=== PATIENT | female | born 1950 | race Caucasian/White ===

== ENCOUNTER 2018-10-14 21:24 | Emergency (ER) | payer MEDICARE, OTHER ==
[~2018-10-14] VITALS: Ht 170.2 cm; Wt 111.6 kg
[~2018-10-14 21:24] MED LIST: ASA81 MG PO; Z.0.LOSARTAN POTASS5 PO; Z.0.METOPROLOL SUCC5 PO; Z.0.NEXIUM40 MG PO; Z.0.ZYRTEC10 M3 PO
--- OUTSIDE RECORDS SUMMARY | 2018-10-14 21:27 | XMS REPORT | Clinical Summary ---
Author Author [place] [facility] Organization [facility] Address Unknown Phone Unavailable Care Team Providers Care Medical Records Supervisor Name Role Phone Darrin Fischer MD PCP Allergies Comments Active Allergy Reactions Severity Noted Date Zolpidem 06/01/2018 Codeine Penicillins 04/13/2017 Hallucinations; IV Promethazine 06/01/2018 Sulfa (Sulfonamide Antibiotics) Sulfamethoxazole-Trimetho prim Sulfasalazine 01/01/2002 Zolpidem Tartrate 10/29/2011 Medications End Date Status Medication Sig Dispensed Refills Start Date Active ELIQUIS 5 mg tablet Take 5 mg by 6 mouth 2 (two) 7 times a day. Active benzonatate (TESSALON) TAKE ONE 0 100 MG capsule CAPSULE BY 7 MOUTH 2 TO 3 TIMES DAILY DIRECTED Active cephalexin (KEFLEX) 500 Take 500 mg 0 MG capsule by mouth 2 7 (two) times a day. Active clotrimazole-betamethason APPLY AND RUB 1 e (LOTRISONE) 1-0.05 % IN A THIN 7 cream LAYER TO AFFECTED AREAS TWICE A DAY (AM AND PM) Active levocetirizine (XYZAL) 5 Take 5 mg by 3 MG tablet mouth once 7 daily. Active metoprolol succinate XL Take 50 mg by 1 (TOPROL-XL) 50 mg 24 hr mouth 2 (two) 7 tablet times a day. Active metroNIDAZOLE (FLAGYL) Take 500 mg 0 500 MG tablet by mouth 7 every 8 (eight) hours. Active traMADol (ULTRAM) 50 mg Take 50 mg by 0 tablet mouth every 6 7 (six) hours as needed. for pain Active valsartan-hydrochlorothia Take 1 tablet 1 zide (DIOVAN-HCT) 80-12.5 by mouth once 7 mg per tablet daily. Active diclofenac sodium Apply 40 mg 120 g 0 (PENNSAID) 20 mg/gram topically 2 7 /actuation(2 %) solution (two) times a in metered-dose pump day. Active diclofenac sodium Apply 2 pumps 112 g 6 (PENNSAID) 20 mg/gram (40MG) 8 /actuation(2 %) solution Topically on in metered-dose pump affected area twice a day 06/07/2019 Active traMADol (ULTRAM) 50 mg Take 1 tablet 60 tablet 0 tablet (50 mg total) 8 by mouth every 4 (four) hours as needed for moderate pain. 07/09/2018 acetaminophen-codeine Take 1-2 30 tablet 0 (TYLENOL WITH CODEINE #3) tablets by 8 300-30 mg per tablet mouth 3 (three) times a day as needed for moderate pain for up to 10 days. Status Hospital, Clinic, or Ordered Dose Route Frequency Start End Date Other Facility Date Administered Medication Ended methylPREDNISolone 40 mg IM once 06/29/20 acetate (DEPO-MEDROL) 18 8 injection 40 mgIndications: Primary osteoarthritis of right knee Ended bupivacaine (MARCAINE) 5 mg inj once 06/29/20 0.5 % (5 mg/mL) injection 18 8 5 mgIndications: Primary osteoarthritis of right knee Active Problems Problem Noted Date Primary osteoarthritis of right knee 04/25/2018 Osteoarthritis of acromioclavicular joints, bilateral 04/13/2017 Trochanteric bursitis, left hip 04/13/2017 Encounters Care Team Description Date Type Specialty Gustavo Gilman Jr., MD Primary osteoarthritis of right knee (Primary Dx) 09/28/2018 Office Visit Orthopedic Surgery Martin Pillai MA 09/20/2018 Telephone Orthopedic Surgery Martin Pillai MA 09/19/2018 Telephone Orthopedic Surgery Gustavo Gilman Jr., MD Primary osteoarthritis of right knee (Primary Dx); Trochanteric bursitis, left hip 07/19/2018 Office Visit Orthopedic Surgery Gustavo Gilman Jr., MD Primary osteoarthritis of right knee (Primary Dx) 06/29/2018 Office Visit Orthopedic Surgery Aric Townsend MD 06/19/2018 Telephone Orthopedic Surgery Aric Townsend MD Sprain of collateral ligament of right knee, subsequent encounter; Pain and swelling of right knee; Joint laxity of right knee 06/14/2018 Hospital Radiology Encounter Aric Townsend MD Sprain of collateral ligament of right knee, subsequent encounter (Primary Dx); Pain and swelling of right knee; Joint laxity of right knee 06/07/2018 Office Visit Sports Medicine Carlos A Gama MD Acute pain of right knee (Primary Dx); Osteoarthritis of right knee, unspecified osteoarthritis type 06/01/2018 Emergency Emergency Medicine Gabrielle Foy MA 05/02/2018 Refill Ortho Sports Medicine Aric Townsend MD Primary osteoarthritis of right knee (Primary Dx); Castellanos's cyst of knee, right 04/25/2018 Office Visit Sports Medicine after 10/13/2017 Family History Medical History Relation Name Comments Heart disease Mother Hypertension Mother Stroke Mother Relation Name Status Comments Mother Social History Date Tobacco Use Types Packs/Day Years Used Never Smoker Smokeless Tobacco: Never Used Alcohol Use Drinks/Week oz/Week Comments No Sex Assigned at Date Recorded Not on file Industry Job Start Date Occupation Not on file Not on file Not on file Travel End Travel History Travel Start No recent travel history available. Last Filed Vital Signs Time Taken Vital Sign Reading 09/28/2018 11:14 AM WELDER EXPERIMENTAL Blood Pressure 124/75 09/28/2018 11:14 AM WELDER EXPERIMENTAL Pulse 72 06/01/2018 3:03 PM CDT Temperature 36.7 C (98 F) 06/01/2018 4:08 PM CDT Respiratory Rate 16 06/01/2018 4:08 PM CDT Oxygen Saturation 99% - Inhaled Oxygen - Concentration 09/28/2018 11:14 AM WELDER EXPERIMENTAL Weight 90.3 kg (199 lb) 09/28/2018 11:14 AM WELDER EXPERIMENTAL Height 167.6 cm (5' 6") 09/28/2018 11:14 AM WELDER EXPERIMENTAL Body Mass Index 32.12 Plan of Treatment Care Team Description Date Type Specialty Gustavo Gilman Jr., MD [address] [facility] [address] [place], [place] [id number] Joshua Fair, PT 11/21/2018 Office Visit Physical Therapy Health Maintenance Due Date Last Done Comments BREAST CANCER SCREENING 2001 COLON CANCER SCREENING 2001 SHINGRIX VACCINE (1 of 2) 2001 ZOSTER VACCINE 2011 PNEUMOCOCCAL 2016 POLYSACCHARIDE VACCINE AGE 65 AND OVER PNEUMOCOCCAL-13 2016 INFLUENZA VACCINE 06/14/2018 Procedures Comments Procedure Name Priority Date/Time Associated Diagnosis [place] ARTHROCENTESIS Routine 09/28/2018 Primary osteoarthritis of ASPIR&/INJ MAJOR JT/BURSA 10:45 AM WELDER EXPERIMENTAL right knee W/O US MN ARTHROCENTESIS Routine 06/29/2018 Primary osteoarthritis of ASPIR&/INJ MAJOR JT/BURSA 9:00 AM CDT right knee W/O US MRI KNEE WO CONTRAST Routine 06/14/2018 Sprain of collateral RIGHT 11:14 AM CDT ligament of right knee, subsequent encounter Pain and swelling of right knee Joint laxity of right knee XR KNEE 4+ VW RIGHT Routine 04/25/2018 Sprain of right knee, 4:15 PM CDT unspecified ligament, initial encounter MN ARTHROCENTESIS Routine 04/25/2018 Primary osteoarthritis of ASPIR&/INJ MAJOR JT/BURSA 4:15 PM CDT right knee W/O US Castellanos's cyst of knee, right after 10/13/2017 Results * Large Joint Arthrocentesis: knee, R knee (09/28/2018 10:45 AM WELDER EXPERIMENTAL) Narrative Performed At Gustavo Gilman Jr., MD 10/08/2018 12:25 PM Large Joint Arthrocentesis: knee, R knee Consent given by: patient Site marked: site marked Timeout: Immediately prior to procedure a time out was called to verify the correct patient, procedure, equipment, student support counselor and site/side marked as required Supporting Documentation Indications: pain Procedure Details Preparation: Patient was prepped and draped in the usual sterile fashion Location: knee - R knee Right side: Needle size: 22 G Approach: anterolateral Right knee medications administered: 1 mL bupivacaine 0.5 % (5 mg/mL); 40 mg methylPREDNISolone acetate 40 mg/mL Patient tolerance: patient tolerated the procedure well with no immediate complications * Large Joint Arthrocentesis (06/29/2018 9:00 AM CDT) Narrative Performed At Gustavo Gilman Jr., MD 07/03/20183:05 PM Large Joint Arthrocentesis Consent given by: patient Site marked: site marked Timeout: Immediately prior to procedure a time out was called to verify the correct patient, procedure, equipment, student support counselor and site/side marked as required Supporting Documentation Indications: pain and joint swelling Procedure Details Preparation: Patient was prepped and draped in the usual sterile fashion Location: knee - R knee Right side: Needle size: 22 G Right knee medications administered: 40 mg methylPREDNISolone acetate 40 mg/mL; 1 mL bupivacaine 0.5 % (5 mg/mL) Patient tolerance: patient tolerated the procedure well with no immediate complications * MRI Knee Right Wo Contrast (06/14/2018 11:14 AM CDT) Narrative Performed At EXAMINATION:MRI KNEE WO CONTRAST RIGHT [facility] CLINICAL HISTORY: 67 years Female S83.401D Sprain of unspecified collateral ligament of right kneesubsequent encounter, M25.561 Pain in right knee, MMT - SOFT TISSUE MASS TECHNIQUE:Multiplanar multisequence MR imaging of the right knee was performed without contrast. COMPARISON:None. FINDINGS: Menisci: lateral meniscus demonstrates an extensive tear of the anterior horn with maceration extending to the anterior root. This is largely horizontal degenerative tear also extends to the posterior horn. The medial meniscus demonstrates an inferior surface obliquely oriented tear extending to the body. This is a horizontal degenerative tear. Cruciate ligaments: The anterior and posterior crucial ligaments are intact. Collateral ligaments: The medial collateral ligament is thickened consistent with some scar from chronic tear. The lateral collateral ligament appears intact. Osseous structures and cartilaginous surfaces: There is diffuse chondromalacia involving the lateral compartment with no focal full-thickness lesions noted. No marrow edema is identified. Medially there is near denuding of articular cartilage over the central and anterior weightbearing surfaces of the medial femoral condyle and medial tibial plateau In the patellofemoral compartment there is mild attenuation of articular cartilage over the central patellar articular surface and adjacent portion of the lateral facet. Attenuation of cartilage in the trochlear groove is also present. Osteophytes medially are noted although these are small. Patellofemoral joint: The patella fits normally and the trochlear groove. Visualized portions of the quadriceps and patellar tendons are intact. Miscellaneous findings: There is a small volume of joint fluid. There is a popliteal cyst measuring approximately 5 cm in maximum dimension. IMPRESSION: 1. 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 2. Extensive horizontal tear communicating along the inferior meniscal surface and free edge involving the medial meniscus extending to the periphery and body and to the area of the posterior root attachment. 3. 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 Milder changes laterally and in the patellofemoral compartment are present. 4. Moderate joint effusion, popliteal cyst measuring up to approximately 5 cm. [id number] Procedure Note Hm Interface, Radiology Results Incoming - 06/14/2018 11:36 AM CDT EXAMINATION: MRI KNEE WO CONTRAST RIGHT CLINICAL HISTORY: 67 years Female S83.401D Sprain of unspecified collateral ligament of right knee subsequent encounter, M25.561 Pain in right knee, MMT - SOFT TISSUE MASS TECHNIQUE: Multiplanar multisequence MR imaging of the right knee was performed without contrast. COMPARISON: None. FINDINGS: Menisci: lateral meniscus demonstrates an extensive tear of the anterior horn with maceration extending to the anterior root. This is largely horizontal degenerative tear also extends to the posterior horn. The medial meniscus demonstrates an inferior surface obliquely oriented tear extending to the body. This is a horizontal degenerative tear. Cruciate ligaments: The anterior and posterior crucial ligaments are intact. Collateral ligaments: The medial collateral ligament is thickened consistent with some scar from chronic tear. The lateral collateral ligament appears intact. Osseous structures and cartilaginous surfaces: There is diffuse chondromalacia involving the lateral compartment with no focal full-thickness lesions noted. No marrow edema is identified. Medially there is near denuding of articular cartilage over the central and anterior weightbearing surfaces of the medial femoral condyle and medial tibial plateau In the patellofemoral compartment there is mild attenuation of articular cartilage over the central patellar articular surface and adjacent portion of the lateral facet. Attenuation of cartilage in the trochlear groove is also present. Osteophytes medially are noted although these are small. Patellofemoral joint: The patella fits normally and the trochlear groove. Visualized portions of the quadriceps and patellar tendons are intact. Miscellaneous findings: There is a small volume of joint fluid. There is a popliteal cyst measuring approximately 5 cm in maximum dimension. IMPRESSION: 1. 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 2. Extensive horizontal tear communicating along the inferior meniscal surface and free edge involving the medial meniscus extending to the periphery and body and to the area of the posterior root attachment. 3. 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 Milder changes laterally and in the patellofemoral compartment are present. 4. Moderate joint effusion, popliteal cyst measuring up to approximately 5 cm. [id number] Performing Organization Address [facility] Phone Number [email or web address] [address] [place] [address] * XR Knee 4+ Vw Right (04/25/2018 4:15 PM CDT) Narrative Performed At [facility] Moderate Medial and patellofemoral compartment joint space narrowing Performing Organization Address [facility] Phone Number [email or web address] [address] [place] [address] * Large Joint Arthrocentesis (04/25/2018 4:15 PM CDT) Narrative Performed At Aric Townsend MD 04/25/20184:48 PM Large Joint Arthrocentesis Consent given by: patient Site marked: site marked Timeout: Immediately prior to procedure a time out was called to verify the correct patient, procedure, equipment, student support counselor and site/side marked as required Supporting Documentation Indications: pain Procedure Details Preparation: Patient was prepped and draped in the usual sterile fashion Location: knee - R knee Right side: Needle size: 20 G Approach: lateral Right knee medications administered: 2 mL bupivacaine 0.25 % (2.5 mg/mL); 80 mg methylPREDNISolone acetate 80 mg/mL Patient tolerance: patient tolerated the procedure well with no immediate complications after 10/13/2017 Insurance Payer Benefit Subscriber ID Type Phone Address Plan / Group HUMANA MEDICARE HUMANA xxxxxxxxx PPO MEDICARE PPO/PFFS/E [facility] Advance Directives Patient has advance care planning documents on file. For more information, douglas rios contact: Adin Garcia [address] [place] [address]
[2018-10-14] MEDS ORDERED: DIATRIZOATE MEGL/DIATRIZOA SOD 30 ML BTL PO ONE (22:06)
[2018-10-14 22:07] LABS: BASOPHILS # (AUTO) 0.1 (0.0-0.1); BASOPHILS % 0.8 % (0.0-1.0); EOSINOPHILS # (AUTO) 0.3 (0.0-0.4); EOSINOPHILS % 2.4 % (0.0-6.0); HEMATOCRIT 43.7 % (34.2-44.1); HEMOGLOBIN 14.4 g/dL (12.0-16.0); LYMPHOCYTES % 28.5 % (18.0-39.1); MEAN CORPUSCULAR HEMOGLOBIN 29.1 pg (28-32); MEAN CORPUSCULAR VOLUME 88.3 fL (81-99); MONOCYTES # (AUTO) 0.8 (0.2-0.8); MONOCYTES % 7.6 % (4.4-11.3); NEUTROPHILS # (AUTO) 6.3 (2.1-6.9); NEUTROPHILS % 60.5 % (38.7-80.0); PLATELET COUNT 310 x10e3/uL (140-360); RED BLOOD COUNT 4.95 x10e6/uL (3.6-5.1); RED CELL DISTRIBUTION WIDTH 12.1 % (11.7-14.4)
[2018-10-14 22:11] LABS: INR 1.04; PROTHROMBIN TIME 14.5 seconds (11.9-14.5)
[2018-10-14 22:12] LABS: PARTIAL THROMBOPLASTIN TIME 30.2 seconds (23.8-35.5)
[2018-10-14 22:18] LABS: BILIRUBIN,URINE NEGATIVE (NEGATIVE); CLARITY,URINE CLEAR (CLEAR); COLOR,URINE YELLOW (YELLOW); KETONES,URINE NEGATIVE (NEGATIVE); LEUKOCYTE ESTERASE ,URINE NEGATIVE (NEGATIVE); NITRITE,URINE NEGATIVE (NEGATIVE); PROTEIN,URINE DIPSTICK NEGATIVE (NEGATIVE); URINE UROBILINOGEN 0.2 mg/dL (0.2 - 1)
[2018-10-14 22:21] LABS: ALANINE AMINOTRANSFERASE 25 IU/L (0-55); ALBUMIN 4.3 g/dL (3.5-5.0); ALBUMIN/GLOBULIN RATIO 1.3 (0.8-2.0); ALKALINE PHOSPHATASE 84 IU/L (40-150); AMYLASE 51 U/L (25-125); ANION GAP 15.3 mmol/L (8-16); BLOOD UREA NITROGEN 24 mg/dL (7-26); BUN/CREATININE RATIO 32 (6-25); CALCIUM 10.2 mg/dL (8.4-10.2); CARBON DIOXIDE 28 mmol/L (22-29); CHLORIDE 98 mmol/L (98-107); CREATININE, SERUM 0.76 mg/dL (0.57-1.11); EST GLOMERULAR FILTRATION RATE > 60 ML/MIN (60-); GLUCOSE 100 mg/dL (74-118); LIPASE 49 U/L (8-78); MAGNESIUM 2.2 MG/DL (1.3-2.1); POTASSIUM 3.3 mmol/L (3.5-5.1); SODIUM 138 mmol/L (136-145)
[2018-10-14 22:41] LABS: BACTERIA,URINE RARE /HPF; EPITHELIAL CELLS,URINE RARE /LPF; WBC,URINE (MAN) 0-5 /HPF (0-5)
[2018-10-14] MEDS ORDERED: IOPAMIDOL 370 MG/ML 200 ML INFUS..BTL INJ ONE (23:26)
[2018-10-14] MEDS ORDERED: SODIUM CHLORIDE 0.9% 50ML 50 ML ONE (23:26)
--- NOTE | 2018-10-15 00:12 | Diagnostic Imaging Report ---
EXAM: CT ABDOMEN AND PELVIS with IV CONTRAST DATE: 10/14/2018 9:51 PM Time stamp on Exam: 2346 hours INDICATION: Left lower quadrant pain COMPARISON: None TECHNIQUE: The abdomen and pelvis were scanned using a multidetector helical scanner. Coronal and sagittal reformations were obtained. Dose modulation, iterative reconstruction, and/or weight based adjustment of the mA/kV was utilized to reduce the radiation dose to as low as reasonably achievable. Routine protocol performed. IV Contrast: 100 cc Isovue-370 Oral Contrast: Gastrografin FINDINGS: LOWER THORAX: No consolidations LIVER: No masses BILIARY: The gallbladder is unremarkable. No ductal dilation. SPLEEN: No masses PANCREAS: No masses ADRENALS: No nodules KIDNEYS: Symmetric perfusion. No enhancing masses. No hydronephrosis. GI TRACT: Colonic diverticulosis, predominantly of the descending and sigmoid colon. Minimal focal inflammation at the junction of the descending and sigmoid colon. The remainder of the bowel is unremarkable. VESSELS: Unremarkable PERITONEUM/RETROPERITONEUM: No free air or fluid LYMPH NODES: No lymphadenopathy REPRODUCTIVE ORGANS: The uterus has been removed. Left adnexal 3 cm cyst. BLADDER: Unremarkable SOFT TISSUES: Unremarkable BONES: No suspicious bone lesions. IMPRESSION: 1. Early uncomplicated diverticulitis of the distal descending colon. 2. Incidental left ovarian 3 cm cyst. If no priors are available for comparison, current recommendation for a postmenopausal female is to have follow-up (non-emergent) pelvic ultrasound. Signed by: Dr. Valeria Chou M.D. on 10/15/2018 12:09 AM
[2018-10-15 00:50] VITALS: BP 147/87
[2018-10-25] MEDS ORDERED: METRONIDAZOLE500 MG PO (09:13)
[2018-10-25] MEDS ORDERED: CIPRO500 MG PO (09:13)
== END 2018-10-15 00:52 | disposition home or self-care (01) ==
LOC: ER 21:24
DX: R10.32 Left lower quadrant pain (principal); R11.0 Nausea; K57.32 Diverticulitis of large intestine without perforation or abscess without bleeding; I48.91 Unspecified atrial fibrillation; K21.9 Gastro-esophageal reflux disease without esophagitis; I34.1 Nonrheumatic mitral (valve) prolapse
CPT/HCPCS: 36415; 74177; 80053; 81001; 82150; 83605; 83690; 83735; 85025; 85610; 85730; 93005; 99284; Q9663; Q9967

== ENCOUNTER 2018-10-22 04:15 | Inpatient (IN) | payer MEDICARE, OTHER ==
[~2018-10-22] VITALS: Ht 167.6 cm; Wt 91.8 kg
--- OUTSIDE RECORDS SUMMARY | 2018-10-22 04:17 | XMS REPORT | Clinical Summary ---
Author Author [place] [facility] Organization [facility] Address Unknown Phone Unavailable Care Team Providers Care Equine Breeder Name Role Phone Darrin Fischer MD PCP [...] right 04/25/2018 Office Visit Sports Medicine after 10/21/2017 Family History Medical History Relation Name Comments [...] Taken Vital Sign Reading 09/28/2018 11:14 AM VICE PRESIDENT NETWORK DEVELOPMENT Blood Pressure 124/75 09/28/2018 11:14 AM VICE PRESIDENT NETWORK DEVELOPMENT Pulse 72 06/01/2018 3:03 PM CDT Temperature 36.7 C (98 F) 06/01/2018 4:08 PM CDT Respiratory Rate 16 06/01/2018 4:08 PM CDT Oxygen Saturation 99% - Inhaled Oxygen - Concentration 09/28/2018 11:14 AM VICE PRESIDENT NETWORK DEVELOPMENT Weight 90.3 kg (199 lb) 09/28/2018 11:14 AM VICE PRESIDENT NETWORK DEVELOPMENT Height 167.6 cm (5' 6") 09/28/2018 11:14 AM VICE PRESIDENT NETWORK DEVELOPMENT Body Mass Index 32.12 Plan of Treatment Care Team Description Date Type Specialty Gustavo Gilman Jr., MD [address] [facility] [address] [place], [place] [id number] Joshua Fair, PT 11/21/2018 Office Visit Physical Therapy Health Maintenance Due Date Last Done Comments BREAST CANCER SCREENING 2001 COLON CANCER SCREENING 2001 SHINGRIX VACCINE (1 of 2) 2001 ZOSTER VACCINE 2011 PNEUMOCOCCAL 2016 POLYSACCHARIDE VACCINE AGE 65 AND OVER PNEUMOCOCCAL-13 2016 INFLUENZA VACCINE 06/14/2018 Procedures Comments Procedure Name Priority Date/Time Associated Diagnosis ME ARTHROCENTESIS Routine 09/28/2018 Primary osteoarthritis of ASPIR&/INJ MAJOR JT/BURSA 10:45 AM VICE PRESIDENT NETWORK DEVELOPMENT right knee W/O US ME ARTHROCENTESIS Routine 06/29/2018 Primary osteoarthritis of ASPIR&/INJ [...] 4:15 PM CDT unspecified ligament, initial encounter ME ARTHROCENTESIS Routine 04/25/2018 Primary osteoarthritis of ASPIR&/INJ MAJOR JT/BURSA 4:15 PM CDT right knee W/O US Castellanos's cyst of knee, right after 10/21/2017 Results * Large Joint Arthrocentesis: knee, R knee (09/28/2018 10:45 AM VICE PRESIDENT NETWORK DEVELOPMENT) Narrative Performed At Gustavo Gilman Jr., MD 10/08/2018 12:25 PM Large Joint Arthrocentesis: knee, R knee Consent given by: patient Site marked: site marked Timeout: Immediately prior to procedure a time out was called to verify the correct patient, procedure, equipment, academic support director and site/side marked as required Supporting Documentation [...] to verify the correct patient, procedure, equipment, academic support director and site/side marked as required Supporting Documentation [...] cyst measuring up to approximately 5 cm. [id number] Procedure Note Hm Interface, Radiology Results Incoming [...] cyst measuring up to approximately 5 cm. [id number] Performing Organization Address [facility] Phone Number [facility] [address] [place] [address] * XR Knee 4+ Vw Right (04/25/2018 4:15 PM CDT) Narrative Performed At [facility] Moderate Medial and patellofemoral compartment joint space narrowing Performing Organization Address [facility] Phone Number [facility] [address] [place] [address] * Large Joint Arthrocentesis (04/25/2018 4:15 PM CDT) Narrative Performed At Aric Townsend MD 04/25/20184:48 PM Large Joint Arthrocentesis Consent given by: patient Site marked: site marked Timeout: Immediately prior to procedure a time out was called to verify the correct patient, procedure, equipment, academic support director and site/side marked as required Supporting Documentation [...] procedure well with no immediate complications after 10/21/2017 Insurance Payer Benefit Subscriber ID Type Phone Address Plan / Group HUMANA MEDICARE HUMANA xxxxxxxxx PPO MEDICARE PPO/PFFS/E [facility] Advance Directives Patient has advance care planning documents on file. For more information, douglas rios contact: Adin Garcia [address] [place] [address]
--- OUTSIDE RECORDS SUMMARY | 2018-10-22 04:17 | XMS REPORT ---
Author Author [facility] Address Unknown Phone Unavailable Care Team Providers Care Illuminator Name Role Phone Cheryl BUTLER Unavailable Unavailable Problems This patient has no known problems. Allergies, Adverse Reactions, Alerts This patient has no known allergies or adverse reactions. Medications This patient has no known medications. Results Test Description Test Time Test Comments Text Results Atomic Results Result Comments CT ABDOMEN/PELVIS W 2018-10-14 23:59:00 [place] [address] Patient Name: SAGAR RODRIGUEZ MR #: [id number] : 1950 Age/Sex: 67/F Req #: [id number] Adm Physician: Ordered by: EZEKIEL HALL TIPPLE OILER Report #: [id number] Location: ER Room/Bed: Procedure: [id number] CT/CT ABDOMEN/PELVIS W Exam Date: 10/14/18 Exam Time: 2340 REPORT STATUS: Signed EXAM: CT ABDOMEN AND PELVIS with IV CONTRAST DATE: 10/14/2018 9:51 PM Time stamp on Exam: 2346 hours INDICATION: Left lower quadrant pain COMPARISON: None TECHNIQUE: The abdomen and pelvis were scanned using a multidetector helical scanner. Coronal and sagittal reformations were obtained. Dose modulation, iterative reconstruction, and/or weight based adjustment of the mA/kV was utilized to reduce the radiation dose to as low as reasonably achievable. Routine protocol performed. IV Contrast: 100 cc Isovue-370 Oral Contrast: Gastrografin FINDINGS: LOWER THORAX: No consolidations LIVER: No masses BILIARY: The gallbladder is unremarkable. No ductal dilation. SPLEEN: No masses PANCREAS: No masses ADRENALS: No nodules KIDNEYS: Symmetric perfusion. No enhancing masses. No hydronephrosis. GI TRACT: Colonic diverticulosis, predominantly of the descending and sigmoid colon. Minimal focal inflammation at the junction of the descending and sigmoid colon. The remainder of the bowel is unremarkable. VESSELS: Unremarkable PERITONEUM/RETROPERITONEUM: No free air or fluid LYMPH NODES: No lymphadenopathy REPRODUCTIVE ORGANS: The uterus has been removed. Left adnexal 3 cm cyst. BLADDER: Unremarkable SOFT TISSUES: Unremarkable BONES: No suspicious bone lesions. IMPRESSION: 1. Early uncomplicated diverticulitis of the distal descending colon. 2. Incidental left ovarian 3 cm cyst. If no priors are available for comparison, current recommendation for a postmenopausal female is to have follow-up (non-emergent) pelvic ultrasound. Signed by: Dr. Samuel Chou M.D. on 10/15/2018 12:09 AM Dictated By: SAMUEL CHOU MD Transcribed By: LINDA on 10/15/188 COPY TO: EZEKIEL HALL NP
[2018-10-22] MEDS ORDERED: SODIUM CHLORIDE 0.9% 1000ML 1,000 ML IV STA (04:29)
[2018-10-22] MEDS ORDERED: PANTOPRAZOLE 40 MG 10ML VIAL IV STA (04:29)
[2018-10-22] MEDS ORDERED: ONDANSETRON HCL INJ 2 MG/ML VIAL IV STA (04:29)
[2018-10-22] MEDS ORDERED: CEFEPIME HCL 2 GM VIAL IV SCH (04:30)
[2018-10-22] MEDS ORDERED: METRONIDAZOLE 500MG/NS 100ML 100 ML IV SCH (04:30)
[2018-10-22 05:18] LABS: BASOPHILS # (AUTO) 0.1 (0.0-0.1); BASOPHILS % 0.7 % (0.0-1.0); EOSINOPHILS # (AUTO) 0.2 (0.0-0.4); EOSINOPHILS % 1.8 % (0.0-6.0); HEMOGLOBIN 15.4 g/dL (12.0-16.0); LYMPHOCYTES # (AUTO) 2.8 (1.0-3.2); LYMPHOCYTES % 23.5 % (18.0-39.1); MEAN CORPUSCULAR HGB CONC 32.8 g/dL (31-35); MEAN CORPUSCULAR VOLUME 88.5 fL (81-99); MONOCYTES # (AUTO) 0.9 (0.2-0.8); MONOCYTES % 7.8 % (4.4-11.3); PLATELET COUNT 275 x10e3/uL (140-360); RED BLOOD COUNT 5.31 x10e6/uL (3.6-5.1); RED CELL DISTRIBUTION WIDTH 12.3 % (11.7-14.4)
[2018-10-22] MEDS ORDERED: SODIUM CHLORIDE 0.9% 100 ML ONE (05:22)
[2018-10-22 05:28] LABS: INR 0.96; PARTIAL THROMBOPLASTIN TIME 33.1 seconds (23.8-35.5); PROTHROMBIN TIME 13.7 seconds (11.9-14.5)
[2018-10-22 05:36] LABS: ALANINE AMINOTRANSFERASE 33 IU/L (0-55); ALBUMIN 4.1 g/dL (3.5-5.0); ALBUMIN/GLOBULIN RATIO 1.1 (0.8-2.0); ALKALINE PHOSPHATASE 87 IU/L (40-150); ANION GAP 14.6 mmol/L (8-16); BLOOD UREA NITROGEN 14 mg/dL (7-26); BUN/CREATININE RATIO 20 (6-25); CALCIUM 10.5 mg/dL (8.4-10.2); CARBON DIOXIDE 30 mmol/L (22-29); CHLORIDE 99 mmol/L (98-107); CREATINE KINASE 52 IU/L (29-168); CREATININE, SERUM 0.69 mg/dL (0.57-1.11); EST GLOMERULAR FILTRATION RATE > 60 ML/MIN (60-); GLUCOSE 118 mg/dL (74-118); POTASSIUM 3.6 mmol/L (3.5-5.1); SODIUM 140 mmol/L (136-145)
[2018-10-22] MEDS ORDERED: ELIQUIS PO (06:15)
[2018-10-22] MEDS ORDERED: HYDROCHLOROTH12.5 MG PO (06:15)
[2018-10-22 06:29] LABS: COLOR,URINE STRAW (YELLOW)
[2018-10-22 06:30] LABS: BACTERIA,URINE FEW /HPF; BILIRUBIN,URINE NEGATIVE (NEGATIVE); CLARITY,URINE CLEAR (CLEAR); EPITHELIAL CELLS,URINE FEW /LPF; KETONES,URINE NEGATIVE (NEGATIVE); LEUKOCYTE ESTERASE ,URINE NEGATIVE (NEGATIVE); NITRITE,URINE NEGATIVE (NEGATIVE); PROTEIN,URINE DIPSTICK NEGATIVE (NEGATIVE); URINE UROBILINOGEN 0.2 mg/dL (0.2 - 1); WBC,URINE (MAN) 0-5 /HPF (0-5)
[2018-10-22] MEDS ORDERED: MORPHINE SULFATE 2 MG/ML SYR IV PRN (06:45)
[2018-10-22] MEDS ORDERED: ONDANSETRON HCL INJ 2 MG/ML VIAL IV PRN (06:45)
[2018-10-22] MEDS ORDERED: SODIUM CHLORIDE 0.9% 1000ML 1,000 ML ONE (07:14)
[2018-10-22] MEDS: SODIUM CHLORIDE 0.9% 1000ML 1,000 ML IV SCH ×2 (07:15→16:33)
--- OUTSIDE RECORDS SUMMARY | 2018-10-22 07:37 | XMS REPORT | Clinical Summary ---
Author Author [place] [employer] Address Unknown Phone Unavailable Care Team Providers Care Manager Contracting Name Role Phone Darrin [place] MD PCP [...] Taken Vital Sign Reading 09/28/2018 11:14 AM GLYCERIN OPERATOR Blood Pressure 124/75 09/28/2018 11:14 AM GLYCERIN OPERATOR Pulse 72 06/01/2018 3:03 PM CDT Temperature 36.7 C (98 F) 06/01/2018 4:08 PM CDT Respiratory Rate 16 06/01/2018 4:08 PM CDT Oxygen Saturation 99% - Inhaled Oxygen - Concentration 09/28/2018 11:14 AM GLYCERIN OPERATOR Weight 90.3 kg (199 lb) 09/28/2018 11:14 AM GLYCERIN OPERATOR Height 167.6 cm (5' 6") 09/28/2018 11:14 AM GLYCERIN OPERATOR Body Mass Index 32.12 Plan of Treatment Care Team Description Date Type Specialty Gustavo Gilman Jr., MD [address] [facility] [address] [place], [place] [id number] Joshua Fair, PT 11/21/2018 Office Visit Physical Therapy Health Maintenance Due Date Last Done Comments BREAST CANCER SCREENING 2001 COLON CANCER SCREENING 2001 SHINGRIX VACCINE (1 of 2) 2001 ZOSTER VACCINE 2011 PNEUMOCOCCAL 2016 POLYSACCHARIDE VACCINE AGE 65 AND OVER PNEUMOCOCCAL-13 2016 INFLUENZA VACCINE 06/14/2018 Procedures Comments Procedure Name Priority Date/Time Associated Diagnosis UT ARTHROCENTESIS Routine 09/28/2018 Primary osteoarthritis of ASPIR&/INJ MAJOR JT/BURSA 10:45 AM GLYCERIN OPERATOR right knee W/O US UT ARTHROCENTESIS Routine 06/29/2018 Primary osteoarthritis of ASPIR&/INJ [...] 4:15 PM CDT unspecified ligament, initial encounter UT ARTHROCENTESIS Routine 04/25/2018 Primary osteoarthritis of ASPIR&/INJ MAJOR JT/BURSA 4:15 PM CDT right knee W/O US Castellanos's cyst of knee, right after 10/21/2017 Results * Large Joint Arthrocentesis: knee, R knee (09/28/2018 10:45 AM GLYCERIN OPERATOR) Narrative Performed At Gustavo Gilman Jr., MD 10/08/2018 12:25 PM Large Joint Arthrocentesis: knee, R knee Consent given by: patient Site marked: site marked Timeout: Immediately prior to procedure a time out was called to verify the correct patient, procedure, equipment, operations support professionals and site/side marked as required Supporting Documentation [...] to verify the correct patient, procedure, equipment, operations support professionals and site/side marked as required Supporting Documentation [...] cyst measuring up to approximately 5 cm. [id number] Procedure Note Hm Interface, Radiology Results Incoming [...] cyst measuring up to approximately 5 cm. [id number] Performing Organization Address [facility] Phone Number [facility] [address] [place] [address] * XR Knee 4+ Vw Right (04/25/2018 4:15 PM CDT) Narrative Performed At [facility] Moderate Medial and patellofemoral compartment joint space narrowing Performing Organization Address [facility] Phone Number [facility] [address] [place] [address] * Large Joint Arthrocentesis (04/25/2018 4:15 PM CDT) Narrative Performed At Aric Townsend MD 04/25/20184:48 PM Large Joint Arthrocentesis Consent given by: patient Site marked: site marked Timeout: Immediately prior to procedure a time out was called to verify the correct patient, procedure, equipment, operations support professionals and site/side marked as required Supporting Documentation [...] [employer]NA MEDICARE HUMANA xxxxxxxxx PPO MEDICARE PPO/PFFS/E [facility] Advance Directives Patient has advance care planning documents on file. For more information, douglas rios contact: Adin Garcia [phone] [place] [address]
[2018-10-22 08:00] VITALS: BP 139/77
[2018-10-22] MEDS ORDERED: METOPROLOL TARTRATE 50 MG TAB PO SCH (09:00)
[2018-10-22 12:43] VITALS: BP 122/60
--- NOTE | 2018-10-22 13:59 | History and Physical ---
Ms. Trent is a [facility] 67-year-old woman who presents to the emergency room this morning with a complaint of left lower quadrant abdominal discomfort. HISTORY OF PRESENT ILLNESS: Patient reports that she visited the emergency room here on October 14 and had CAT scan of the abdomen for similar symptoms that suggested diverticulitis, and she was sent home to take oral Cipro and Flagyl, but she feels that her symptoms are getting worse. Past medical history is significant for previous episode of diverticulitis about 2016. She was also hospitalized at [facility] in 2011 for atrial fibrillation and more recently started Eliquis for chronic atrial fibrillation. PAST MEDICAL HISTORY: Significant for diverticulitis; atrial fib, chronic; previous hysterectomy, remote. CURRENT HOME MEDICATIONS: Include; 1. Eliquis 5 mg twice a day. 2. Metoprolol 50 mg twice a day. 3. Losartan 25 mg daily. 4. Hydrochlorothiazide 12.5 mg daily. 5. Nexium 40 mg twice a day. 6. Singulair 10 mg daily. 7. Xyzal 5 mg daily. ALLERGIES: SHE REPORTS SHE IS ALLERGIC TO PENICILLIN AND SULFA DRUGS, SOME PROBLEM WITH PHENERGAN AND AMBIEN. PERSONAL AND SOCIAL HISTORY: She does not smoke or drink. FAMILY HISTORY: Father of lung cancer. Mother of hypertension and cardiac problems. PHYSICAL EXAMINATION GENERAL: At this time shows a pleasant obese white woman who is alert, responsive, afebrile. VITAL SIGNS: Blood pressure 139/77, pulse is 80 and irregularly irregular. HEAD, EYES, EARS, NOSE, AND THROAT: Unremarkable. NECK: No jugular venous distention. THORAX: Heart sounds S1 and S2 are equal, but irregularly irregular. There is no distinct murmur audible. LUNGS: Clear. ABDOMEN: Protuberant. Normal bowel sounds. Nontender. EXTREMITIES: No cyanosis, clubbing, or edema. Recent CAT scan of the abdomen performed October 14 suggests "uncomplicated diverticulitis and a 3-cm ovarian cyst on the left." CURRENT LABS: Show a white count of 12.1, hemoglobin 15.4. BUN 14, creatinine 0.69. ASSESSMENT 1. Diverticulitis. 2. Chronic atrial fibrillation. 3. Hypertension. PLAN: We will attempt to continue her home medications, and she is to receive IV antibiotics. We will ask for GI consultation, and we will monitor closely. Dr. Moran will resume her care tomorrow. Job#: [id number] LPA cc:DR. GIANNI MCFARLANE
[2018-10-22] MEDS: CEFEPIME HCL 2 GM VIAL IV SCH ×2 (14:34→22:35)
[2018-10-22] MEDS: METRONIDAZOLE 500MG/NS 100ML 100 ML IV SCH ×2 (14:34→23:00)
[2018-10-22] MEDS: ACETAMINOPHEN 325 MG TAB PO PRN (14:44)
[2018-10-22] MEDS: APIXABAN 5 MG TABLET PO SCH (16:33)
[2018-10-22] MEDS: METOPROLOL SUCCINATE 50 MG TAB XL PO SCH (16:34)
[2018-10-22 17:09] VITALS: BP 107/52
[2018-10-22 19:54] VITALS: BP 112/61
[2018-10-23] VITALS (8 sets, daily range): BP systolic 104–150; BP diastolic 51–68
[2018-10-23] MEDS: ACETAMINOPHEN 325 MG TAB PO PRN ×3 (01:11→14:38)
[2018-10-23 05:50] LABS: BASOPHILS # (AUTO) 0.1 (0.0-0.1); BASOPHILS % 0.8 % (0.0-1.0); EOSINOPHILS # (AUTO) 0.2 (0.0-0.4); EOSINOPHILS % 2.9 % (0.0-6.0); HEMATOCRIT 36.8 % (34.2-44.1); LYMPHOCYTES # (AUTO) 2.5 (1.0-3.2); LYMPHOCYTES % 33.2 % (18.0-39.1); MEAN CORPUSCULAR HEMOGLOBIN 29.3 pg (28-32); MEAN CORPUSCULAR HGB CONC 32.6 g/dL (31-35); MEAN CORPUSCULAR VOLUME 89.8 fL (81-99); MONOCYTES # (AUTO) 0.8 (0.2-0.8); MONOCYTES % 10.3 % (4.4-11.3); NEUTROPHILS % 52.7 % (38.7-80.0); PLATELET COUNT 220 x10e3/uL (140-360); RED CELL DISTRIBUTION WIDTH 12.4 % (11.7-14.4)
[2018-10-23 06:00] LABS: ANION GAP 9.6 mmol/L (8-16); BLOOD UREA NITROGEN 6 mg/dL (7-26); BUN/CREATININE RATIO 11 (6-25); CARBON DIOXIDE 29 mmol/L (22-29); CHLORIDE 107 mmol/L (98-107); CREATININE, SERUM 0.57 mg/dL (0.57-1.11); EST GLOMERULAR FILTRATION RATE > 60 ML/MIN (60-); GLUCOSE 94 mg/dL (74-118); POTASSIUM 3.6 mmol/L (3.5-5.1); SODIUM 142 mmol/L (136-145)
[2018-10-23] MEDS: SODIUM CHLORIDE 0.9% 1000ML 1,000 ML IV SCH ×3 (06:34→22:23)
[2018-10-23] MEDS: CEFEPIME HCL 2 GM VIAL IV SCH ×3 (06:34→22:21)
[2018-10-23] MEDS: METRONIDAZOLE 500MG/NS 100ML 100 ML IV SCH ×3 (06:35→23:30)
[2018-10-23] MEDS: METOPROLOL SUCCINATE 50 MG TAB XL PO SCH ×2 (08:29→16:48)
[2018-10-23] MEDS: APIXABAN 5 MG TABLET PO SCH ×2 (08:29→16:48)
[2018-10-23] MEDS: LOSARTAN POTASSIUM 25 MG TAB PO SCH (08:29)
--- NOTE | 2018-10-23 09:24 | Consultation ---
DATE OF CONSULTATION: October 23, 2018 This is a 67-year-old lady who presented to the hospital because of pain in the left lower quadrant area. Also has some diarrhea. The patient was seen a week ago and was found to have diverticulitis and was sent home with oral Cipro and Flagyl. However, the pain is not getting better. She is currently feeling better. She said that she had a colonoscopy supposedly about 2 years or so ago. Her workup so far reveals that her white count was a little bit high at 12.1 on admission, and CMP was okay. The CAT scan was not repeated because it was done a week ago and showed evidence of diverticulitis. Her other medical problems are significant for history of atrial fibrillation, history of hysterectomy, history of hypertension, and previous history of diverticulitis about 2 years or so ago. MEDICATIONS ON ADMISSION: Include Eliquis, metoprolol, losartan, hydrochlorothiazide, Nexium, Singulair. ALLERGIES: PENICILLIN AND SULFA. SOCIAL HISTORY: No alcohol abuse. FAMILY HISTORY: Significant for lung cancer and hypertension. REVIEW OF SYSTEMS: Denies any chest pain or shortness of breath. Denies any dysphagia or odynophagia. Denies any dysuria or hematuria or any kind of syncopal episode. PHYSICAL EXAMINATION GENERAL: The patient is awake, alert, appears to be stable, not in acute distress at this point. VITAL SIGNS: Afebrile currently with stable vital signs. HEAD, EYES, EARS, NOSE AND THROAT: Normocephalic and atraumatic. Sclerae are anicteric. NECK: Supple. CARDIAC: Heart sounds regular. ABDOMEN: Soft. There is mild left lower quadrant tenderness. There is no rebound or mass. EXTREMITIES: No clubbing. LAB VALUES: Significant for this morning CBC was okay. BMP was okay. IMPRESSION 1. Acute diverticulitis, currently doing better. 2. History of hypertension. 3. History of atrial fibrillation. PLAN: Continue antibiotic at this point. Advance diet tomorrow. Patient will need to have a colonoscopy in about 6 to 8 weeks. Job#: [id number] cc:MD CLARK STAFFORD MD
[2018-10-24] VITALS (7 sets, daily range): BP systolic 113–138; BP diastolic 59–81
[2018-10-24] MEDS: CEFEPIME HCL 2 GM VIAL IV SCH (05:42)
[2018-10-24] MEDS: METRONIDAZOLE 500MG/NS 100ML 100 ML IV SCH ×3 (06:18→23:37)
[2018-10-24] MEDS: METOPROLOL SUCCINATE 50 MG TAB XL PO SCH ×2 (09:42→17:16)
[2018-10-24] MEDS: APIXABAN 5 MG TABLET PO SCH ×2 (09:42→17:17)
[2018-10-24] MEDS: LOSARTAN POTASSIUM 25 MG TAB PO SCH (09:42)
[2018-10-24] MEDS: SODIUM CHLORIDE 0.9% 1000ML 1,000 ML IV SCH (09:43)
[2018-10-24] MEDS: LACTOBACILLUS ACIDOPHILUS CAPSULE PO SCH (12:24)
[2018-10-24] MEDS: ACETAMINOPHEN 325 MG TAB PO PRN ×2 (12:24→19:24)
[2018-10-24] MEDS: CEFEPIME 2 GM/NS 0.9% 100 ML 100 ML IV SCH ×2 (13:52→22:06)
[2018-10-24] MEDS: PANTOPRAZOLE SOD 40 MG TABEC PO SCH (21:22)
[2018-10-25 00:10] VITALS: BP 133/75
[2018-10-25] MEDS: SODIUM CHLORIDE 0.9% 1000ML 1,000 ML IV SCH (03:43)
[2018-10-25 04:20] VITALS: BP 112/70
[2018-10-25] MEDS: CEFEPIME 2 GM/NS 0.9% 100 ML 100 ML IV SCH (05:30)
[2018-10-25] MEDS: METRONIDAZOLE 500MG/NS 100ML 100 ML IV SCH (06:45)
[2018-10-25 08:00] VITALS: BP 143/66
[2018-10-25] MEDS ORDERED: METRONIDAZOLE500 MG PO (09:13)
[2018-10-25] MEDS ORDERED: CIPRO500 MG PO (09:13)
[2018-10-25 09:25] VITALS: BP 143/66
[2018-10-25] MEDS: PANTOPRAZOLE SOD 40 MG TABEC PO SCH (09:43)
[2018-10-25] MEDS: APIXABAN 5 MG TABLET PO SCH (09:44)
[2018-10-25] MEDS: LOSARTAN POTASSIUM 25 MG TAB PO SCH (09:44)
[2018-10-25] MEDS: METOPROLOL SUCCINATE 50 MG TAB XL PO SCH (09:44)
[2018-10-25] MEDS: LACTOBACILLUS ACIDOPHILUS CAPSULE PO SCH (09:44)
--- NOTE | 2018-10-25 10:29 | Discharge Summary ---
DISCHARGE DIAGNOSES 1. Acute noncomplicated diverticulitis, now improving. 2. Chronic atrial fibrillation on oral anticoagulants. HISTORY OF PRESENT ILLNESS: Ms. Trent is a 67-year-old lady who is a patient of Dr. Darrin Fischer. She has a past medical history significant for chronic atrial fibrillation and a prior episode of diverticulitis in 2016. The patient presented to the emergency room with complaints of abdominal pain, nausea and diarrhea. The pain was located in the left lower quadrant and began 8 days prior to her visit to the emergency department. She was seen in the emergency department. She was given prescriptions for ciprofloxacin and Flagyl but apparently did not take them due to significant side effects. Then she returned to the emergency department because of worsening symptoms. At the time of admission, the CT scan of the abdomen was significant for diverticulitis without evidence of perforation or any complications. She was admitted to the hospital. She was started on a combination of cefepime and Flagyl, and she was put initially n.p.o. and then later on a clear liquid diet that was advanced as tolerated. A consultation was requested with gastroenterology, Dr. Mejias, who agreed with the current treatment and recommended the patient to have an outpatient colonoscopy. Patient was discharged home in stable condition. She was given prescriptions for 5 additional days of metronidazole and ciprofloxacin. She is to follow up with her PCP and with Dr. Mejias to arrange for outpatient colonoscopy. CLARK TEE MD Job#: [id number]
== END 2018-10-25 10:50 | disposition home or self-care (01) | DRG 392 ==
LOC: ER 04:15 → ERHOLD 06:42 → MED/SURG3 08:19
PROVIDERS: ADMIT Internal Medicine; ATTEND Internal Medicine
DX: K57.32 Diverticulitis of large intestine without perforation or abscess without bleeding (principal); I48.2 Chronic atrial fibrillation; Z79.01 Long term (current) use of anticoagulants; I10 Essential (primary) hypertension; Z88.0 Allergy status to penicillin; Z88.2 Allergy status to sulfonamides; Z88.8 Allergy status to other drugs, medicaments and biological substances
CPT/HCPCS: 36415; 80048; 80053; 81001; 82550; 82553; 83605; 83735; 84484; 85025; 85610; 85730; 87086; 93005; 96361; 99284; J0692; J2405; J7030; J7050

== ENCOUNTER → 2019-09-13 | Day surgery (SDC) | payer MEDICARE ==
[2019-09-11 09:27] LABS: BASOPHILS # (AUTO) 0.1 (0.0-0.1); BASOPHILS % 1.1 % (0.0-1.0); EOSINOPHILS # (AUTO) 0.1 (0.0-0.4); EOSINOPHILS % 2.1 % (0.0-6.0); HEMATOCRIT 41.4 % (34.2-44.1); HEMOGLOBIN 13.3 g/dL (12.0-16.0); LYMPHOCYTES # (AUTO) 2.1 (1.0-3.2); LYMPHOCYTES % 33.9 % (18.0-39.1); MEAN CORPUSCULAR HEMOGLOBIN 28.8 pg (28-32); MEAN CORPUSCULAR HGB CONC 32.1 g/dL (31-35); MEAN CORPUSCULAR VOLUME 89.6 fL (81-99); MONOCYTES # (AUTO) 0.7 (0.2-0.8); MONOCYTES % 10.9 % (4.4-11.3); NEUTROPHILS # (AUTO) 3.3 (2.1-6.9); NEUTROPHILS % 51.8 % (38.7-80.0); PLATELET COUNT 266 x10e3/uL (140-360); RED BLOOD COUNT 4.62 x10e6/uL (3.6-5.1); RED CELL DISTRIBUTION WIDTH 12.5 % (11.7-14.4)
[2019-09-11 09:47] LABS: ANION GAP 11.1 mmol/L (8-16); BLOOD UREA NITROGEN 14 mg/dL (7-26); BUN/CREATININE RATIO 22 (6-25); CALCIUM 9.1 mg/dL (8.4-10.2); CARBON DIOXIDE 31 mmol/L (22-29); CHLORIDE 102 mmol/L (98-107); CREATININE, SERUM 0.63 mg/dL (0.57-1.11); EST GLOMERULAR FILTRATION RATE > 60 ML/MIN (60-); GLUCOSE 79 mg/dL (74-118); POTASSIUM 4.1 mmol/L (3.5-5.1); SODIUM 140 mmol/L (136-145)
--- NOTE | 2019-09-11 09:55 | Diagnostic Imaging Report ---
EXAMINATION: CHEST 2 VIEWS INDICATION: Pre-operative COMPARISON: None FINDINGS: LINES/TUBES:None LUNGS:The lungs are moderately inflated. No focal consolidation or pulmonary edema. PLEURA:No pleural effusion or pneumothorax. MEDIASTINUM:The cardiomediastinal silhouette appears normal in size and shape. BONES/SOFT TISSUES:No acute osseous injury. ABDOMEN:No free air under the diaphragm. IMPRESSION: No focal pneumonia or pulmonary edema. Signed by: Grey Toro MD on 09/11/2019 9:51 AM
[~2019-09-13] MED LIST changes: +ACETAMINOPHEN 1000 MG/100 ML IV ONE; +BUPIVACAINE 0.25% 30ML SDV INJ ONE; +BUPIVACAINE HCL 0.5% INJ 30 ML VIAL INJ ONE; +CIPRO500 MG PO; +CLINDAMYCIN PHOS 900MG/ 50ML 50 ML IV ONE; +DEXAMETHASONE SOD PHOS INJ 4 MG/ML VIAL ONE; +ELIQUIS PO; +FENTANYL CITRATE/PF 100MCG/2 ML INJ ONE; +HYDROCHLOROTH12.5 MG PO; +LIDOCAINE 1% W/EPINEPHRINE 20 ML VIAL ONE; +LIDOCAINE HCL 2% LOCAL INJ 5 ML SDV VIAL INJ ONE; +METRONIDAZOLE500 MG PO; +MIDAZOLAM HCL 2 MG/2 ML VIAL ONE; +MORPHINE SULFATE INJ 4 MG/ML INJ 1ML ONE; +ONDANSETRON HCL INJ 2MG/ML 2ML 2 MG/ML VIAL ONE; +PROPOFOL IV EMULSION 10 MG/ML 20 ML VIAL ONE; +SEVOFLURANE INHAL SOLN 250 ML PEN BTL ONE; +XYZAL5 MG PO
[2019-09-13 12:19] VITALS: BP 120/58
--- NOTE | 2019-09-13 22:47 | NUR ---
ORTHOPEDICS OPERATIVE NOTE DATE OF SURGERY: PREOPERATIVE DIAGNOSES: Right Knee Medial & Lateral Meniscus Tear, POSTOPERATIVE DIAGNOSES: Right Knee Medial & Lateral Meniscus Tear, Lateral Femoral Condyle Chondomalacia, Impinging Plica PROCEDURE: Right Knee Arthroscopic Partial Medial and Lateral Meniscectomy, Chondroplasty of Lateral Femoral Condyle, and Excision of Impinging Plica SURGEON: Sarahi Ayala DO ANESTHESIA: General COMPLICATIONS: None TOURNIQUET: Applied but not inflated. No tourniquet EBL: Minimal INDICATIONS: Due to persistent pain and limitations on activity combined with findings on exam and imaging, the patient requests surgical treatment. Nonopera tive care and alternative surgical options were reviewed. We agreed that this provided the best risk/benefit profile for this patient, understanding and accepting risks of recurrent/persistent symptoms, infection, bleeding, stiffness, neurological/vascular damage, failure to improve and anesthetic complication (as reviewed by anesthesia service). Also, the patient understands that arthroscopic treatment of articular cartilage lesions provides temporary incomplete relief but that meniscal symptoms should be well addressed. FINDINGS: RIGHT Knee Patella Grade 2 Chondromalacia Trochlea - Grade 3/4 Chondromalacia of Patella Lateral Gutter Loose small chondral fragments Medial Gutter Loose small chondral fragments Medial Compartment Femoral -Grade 2-3 Chondromalacia Tibial - Grade 1 Chondromalacia Medial Meniscus - Complex Tear of Posterior Horn Cruciate region - Normal Lateral Compartment - Complex anterior horn tear Femoral - Large loose chondral piece Tibial - Grade 1 Chondromalacia Lateral Meniscus - Peripheral fraying Synovium - Large Impinging Plica PROCEDURE: With the patient in the supine position with all prominences well padded, general anesthesia was obtained. Sterile prepping and draping were performed. Antibiotics had been given and a time out performed. After an injection of 1% Lidocaine with Epinephrine in the proposed incision sites, The arthroscope was i nserted via a small lateral parapatellar tendon incision into the patellofemoral space. Under direct visualization, a medial parapatellar tendon portal was created providing a working portal. Diagnostic arthroscopy was performed and the above findings were noted. Within the patellofemoral space, the large impinging plica was excised Within the medial compartment, the medial meniscus was debrided to establish a well-balanced rim, removing approximately 70% of the posterior horn of the medial meniscus. A stable border was created. There was grade 2-3 chondromalacia, which was debrided to stable borders. Within the intercondylar space, the ACL was visualized and intact The lateral compartment demonstrated a friable and frayed lateral meniscus with grade 3-4 chondromalacia of a large chondral fragment of the lateral femoral condyle. This was debrided with an arthroscopic shaver to a stable border with 80% of the meniscus remaining. Chondroplasty was performed on the trochlea to provide a stable border. The joint was extravasated and .25% marcaine was injected into the knee. The incisions were closed and more local was injected around the portal sites. Steristrips, Xeroform, 4x4s, ABDs and a compressive LAURA bandage were applied. The patient was awakened and transferred to the PACU in satisfactory condition having tolerated the procedure well.
== END | disposition home or self-care (01) ==
LOC: OR 09:24
PROVIDERS: ATTEND Orthopaedic Surgery
DX: S83.281A Other tear of lateral meniscus, current injury, right knee, initial encounter (principal); S83.241A Other tear of medial meniscus, current injury, right knee, initial encounter; M22.41 Chondromalacia patellae, right knee; M67.51 Plica syndrome, right knee; I10 Essential (primary) hypertension; I48.91 Unspecified atrial fibrillation; I34.1 Nonrheumatic mitral (valve) prolapse; K76.9 Liver disease, unspecified; K21.9 Gastro-esophageal reflux disease without esophagitis; Z88.1 Allergy status to other antibiotic agents; Z88.0 Allergy status to penicillin; Z88.2 Allergy status to sulfonamides; Z88.8 Allergy status to other drugs, medicaments and biological substances; Z01.810 Encounter for preprocedural cardiovascular examination; Z01.812 Encounter for preprocedural laboratory examination; Z01.818 Encounter for other preprocedural examination; Z79.02 Long term (current) use of antithrombotics/antiplatelets
CPT/HCPCS: 29880; 36415; 71046; 80048; 85025; 93005; J0131; J1100; J2001; J2250; J2270; J2405; J2704; J3010

== ENCOUNTER 2019-09-19 21:35 | Emergency (ER) | payer MEDICARE ==
[~2019-09-19] VITALS: Ht 167.6 cm; Wt 91.6 kg
[~2019-09-19 21:35] MED LIST changes: -ACETAMINOPHEN 1000 MG/100 ML IV ONE; -BUPIVACAINE 0.25% 30ML SDV INJ ONE; -BUPIVACAINE HCL 0.5% INJ 30 ML VIAL INJ ONE; -CLINDAMYCIN PHOS 900MG/ 50ML 50 ML IV ONE; -DEXAMETHASONE SOD PHOS INJ 4 MG/ML VIAL ONE; -FENTANYL CITRATE/PF 100MCG/2 ML INJ ONE; -LIDOCAINE 1% W/EPINEPHRINE 20 ML VIAL ONE; -LIDOCAINE HCL 2% LOCAL INJ 5 ML SDV VIAL INJ ONE; -MIDAZOLAM HCL 2 MG/2 ML VIAL ONE; -MORPHINE SULFATE INJ 4 MG/ML INJ 1ML ONE; -ONDANSETRON HCL INJ 2MG/ML 2ML 2 MG/ML VIAL ONE; -PROPOFOL IV EMULSION 10 MG/ML 20 ML VIAL ONE; -SEVOFLURANE INHAL SOLN 250 ML PEN BTL ONE
[2019-09-19 22:21] LABS: BASOPHILS # (AUTO) 0.1 (0.0-0.1); BASOPHILS % 0.8 % (0.0-1.0); EOSINOPHILS # (AUTO) 0.3 (0.0-0.4); EOSINOPHILS % 3.2 % (0.0-6.0); HEMATOCRIT 41.7 % (34.2-44.1); HEMOGLOBIN 13.4 g/dL (12.0-16.0); LYMPHOCYTES % 34.7 % (18.0-39.1); MEAN CORPUSCULAR HEMOGLOBIN 28.3 pg (28-32); MEAN CORPUSCULAR HGB CONC 32.1 g/dL (31-35); MEAN CORPUSCULAR VOLUME 88.2 fL (81-99); MONOCYTES # (AUTO) 0.8 (0.2-0.8); MONOCYTES % 8.7 % (4.4-11.3); NEUTROPHILS # (AUTO) 4.5 (2.1-6.9); NEUTROPHILS % 52.3 % (38.7-80.0); PLATELET COUNT 295 x10e3/uL (140-360); RED BLOOD COUNT 4.73 x10e6/uL (3.6-5.1); RED CELL DISTRIBUTION WIDTH 12.6 % (11.7-14.4)
[2019-09-19 22:36] LABS: ALANINE AMINOTRANSFERASE 30 IU/L (0-55); ALBUMIN 3.7 g/dL (3.5-5.0); ALBUMIN/GLOBULIN RATIO 1.2 (0.8-2.0); ALKALINE PHOSPHATASE 81 IU/L (40-150); ANION GAP 12.1 mmol/L (8-16); BLOOD UREA NITROGEN 31 mg/dL (7-26); BUN/CREATININE RATIO 44 (6-25); CALCIUM 9.8 mg/dL (8.4-10.2); CARBON DIOXIDE 29 mmol/L (22-29); CHLORIDE 102 mmol/L (98-107); CREATINE KINASE 49 IU/L (29-168); CREATININE, SERUM 0.71 mg/dL (0.57-1.11); EST GLOMERULAR FILTRATION RATE > 60 ML/MIN (60-); GLUCOSE 104 mg/dL (74-118); POTASSIUM 4.1 mmol/L (3.5-5.1); SODIUM 139 mmol/L (136-145)
--- NOTE | 2019-09-19 22:58 | Diagnostic Imaging Report ---
EXAMINATION: CHEST SINGLE (PORTABLE) INDICATION: SOB. COMPARISON: Chest radiograph 09/11/2019. FINDINGS: TUBES and LINES: None. LUNGS: Low lung volumes. Central vascular congestion. There is no evidence of pneumonia or pulmonary edema. PLEURA: No pleural effusion or pneumothorax. HEART AND MEDIASTINUM: The cardiomediastinal silhouette is unremarkable. BONES AND SOFT TISSUES: No acute osseous abnormality. UPPER ABDOMEN: No free air under the diaphragm. IMPRESSION: Central vascular congestion without pulmonary edema. Signed by: Dr. Megan Smith MD on 09/19/2019 10:55 PM
[2019-09-19] MEDS ORDERED: LORAZEPAM 1 MG TAB PO PRN (23:45)
== END 2019-09-19 23:51 | disposition home or self-care (01) ==
LOC: ER 21:35
DX: R06.09 Other forms of dyspnea (principal); F41.9 Anxiety disorder, unspecified; I10 Essential (primary) hypertension; I48.91 Unspecified atrial fibrillation; Z79.01 Long term (current) use of anticoagulants
CPT/HCPCS: 36415; 71045; 80053; 82550; 82553; 84484; 85025; 85379; 93005; 99284